=== PATIENT | male | born 1995 | race Caucasian/White ===

== ENCOUNTER 2017-09-22 01:37 | Emergency (ER) | payer BC ==
[~2017-09-22] VITALS: Ht 177.8 cm; Wt 68.2 kg
[2017-09-22 01:42] VITALS: TEMP 98.1
[2017-09-22 02:31] LABS: BASO % 0.4 % (0.0-2.0); EOS # 0.1 (0.0-0.7); EOS % 1.8 % (0-4.0); GRAN # 2.9 (1.4-6.5); HEMATOCRIT 42.9 % (42.0-52.0); HEMOGLOBIN 15.2 g/dl (13.5-18.0); LYMPH # 1.6 (1.2-3.4); LYMPH % 31.3 % (20.0-51.0); MEAN CELL VOLUME 86 fl (80.0-100.0); MEAN CORPUSCULAR HEMOGLOBIN 31 pg (27.0-31.0); MEAN CORPUSCULAR HGB CONC 35 g/dl (33.0-37.0); MEAN PLATELET VOLUME 12.8 fl (7.4-10.4); MONO # 0.4 (0.1-0.6); MONO % 8.3 % (1.7-9.3); PLATELET COUNT 115 K/mm3 (130-400); RED BLOOD COUNT 4.99 M/mm3 (4.20-5.60); REDCELL DISTRIBUTION WIDTH-CV 11.9 % (11.5-14.5)
[2017-09-22 02:36] LABS: PROTHROMBIN TIME 11.7 SECONDS (9.7-12.8)
[2017-09-22 02:42] LABS: ALANINE AMINOTRANSFERASE 35 U/L (21-72); ALBUMIN 4.5 gm/dL (3.5-5.0); ALKALINE PHOSPHATASE 94 U/L (50-136); ANION GAP 14 mmol/L (7-16); AST,SGOT 23 U/L (15-37); BILIRUBIN,TOTAL 0.3 mg/dL (0.0-1.0); BLOOD UREA NITROGEN 9 mg/dL (9-20); CALCIUM 9.2 mg/dL (8.4-10.2); CARBON DIOXIDE 27 mmol/L (22-30); CHLORIDE 99 mmol/L (98-107); CREATININE, serum 1.16 mg/dL (0.66-1.25); GLUCOSE 107 mg/dL (74-106); POTASSIUM 3.8 mmol/L (3.4-5.0); SODIUM 141 mmol/L (137-145); TOTAL PROTEIN 7.8 gm/dL (6.4-8.2)
[2017-09-22 02:51] LABS: D-DIMER < 200.00 ng/mLDDu (200-230)
[2017-09-22 02:53] LABS: TROPONIN-I < 0.012 ng/mL (0.000-0.034)
[2017-09-22 03:35] VITALS: BP 128/89; PULSE 93
== END 2017-09-22 03:35 | disposition home or self-care (01) ==
LOC: COL.ER 01:37
PROVIDERS: Emergency Medicine
DX: R07.89 Other chest pain (principal)